=== PATIENT | male | born 1935 | race Caucasian/White ===

== ENCOUNTER 2018-05-25 22:17 | Inpatient (IN) | payer MEDICARE ==
--- NOTE | 2018-05-25 23:58 | ED Physician Chart ---
ED Chief Complaint/HPI - Patient Information Date Seen:: 05/25/18 Time Seen:: 22:15 Chief Complaint:: Agitation History of Present Illness:: onset x 3 days of agitation and aggressive behavior; no report of trauma, SIs, H /As, S/T, neck pain, C/P, SOB, Abd. Pain, A/N/V/D/C, fever, chills, or urinary s /s Allergies:: Allergies Allergy/AdvReac Type Severity Reaction Status Date / Time No Known Allergies Allergy Verified 05/25/18 22:19 Vitals:: Vital Signs - 8 hr 05/25/18 22:17 Temp 97.8 F HR 72 RR 20 BP 112/62 O2 Sat % 97 Historian:: Patient Review:: Nurse's Note Reviewed ED Review of Systems - Review of Systems General/Constitutional: No fever, No chills, No weight loss, No weakness, No diaphoresis, No edema, No loss of appetite Skin: No skin lesions, No rash, No bruising Head: No headache, No light-headedness Eyes: No loss of vision, No pain, No diplopia ENT: No earache, No nasal drainage, No sore throat, No tinnitus Neck: No neck pain, No swelling, No thyromegaly, No stiffness, No mass noted Cardio Vascular: No chest pain, No palpitations, No PND, No orthopnea, No edema Pulmonary: No SOB, No cough, No sputum, No wheezing GI: No nausea, No vomiting, No diarrhea, No pain, No melena, No hematochezia, No constipation, No hematemesis G/U: No dysuria, No frequency, No hematuria, No nacturia Musculoskeletal: No bone or joint pain, No back pain, No muscle pain Endocrine: No polyuria, No polydipsia Psychiatric: Prior psych history, Depression, Anxiety, No suicidal ideation, No homicidal ideation, No auditory hallucination Hematopoietic: No bruising, No lymphadenopathy Allergic/Immuno: No urticaria, No angioedema Neurological: No syncope, No focal symptoms, No weakness, No paresthesia, No headache, No seizure, No dizziness, Confusion, No vertigo ED Past Medical History - Past Medical History Obtainable: Yes Past Medical History: HTN, Dyslipidemia, ESRD, Dementia Family History: HTN Social History: Non Smoker, No Alcohol, No Drug Use, Single, Care Facility Surgical History: None Psychiatricy History: Depression, Bipolar, Dementia Medication: Reviewed Family Medical History - Family Member Mother History Unknown: Yes ED Physical Exam - Physical Examination General/Constitutional: Awake, Well-developed, well-nourished, Alert, No distress, GCS 15, Non-toxic appearing, Ambulatory Head: Atraumatic Eyes: Lids, conjuctiva normal, PERRL, EOMI Skin: Nl inspection, No rash, No skin lesions, No ecchymosis, Well hydrated, No lymphadenopathy ENMT: External ears, nose nl, TM canals nl, Nasal exam nl, Lips, teeth, gums nl , Oropharynx nl, Tonsils nl Neck: Nontender, Full ROM w/o pain, No JVD, No nuchal rigidity, No bruit, No mass, No stridor Respiratory: Nl effort/Exclusion, Clear to Auscultation, No Wheeze/Rhonchi/Rales Cardio Vascular: RRR, No murmur, gallop, rubs, NL S1 S2 GI: No tenderness/rebounding/guarding, No organomegaly, No hernia, Normal BS's, Nondistended, No mass/bruits, No McBurney tenderness Other GI comments:: no pulsatile masses : No CVA tenderness Extremities: No tenderness or effusion, Full ROM, normal strength in all extremities, No edema, Normal digits & nails Neuro/Psych: Alert/oriented, DTR's symmetric, Normal sensory exam, Normal motor strength, Judgement/insight normal, Mood normal, Normal gait, No focal deficits Other Neuro/Psych comments:: + Psychomotor Agitation; no SIs; Mood/Affect: Stable Misc: Normal back, No paraspinal tenderness ED Labs/Radiology/EKG Results - Lab Results Comments:: deferred by pt - EKG Interpretations Comments:: deferred by pt ED Septic Shock - . Is Septic Shock (SBP<90, OR Lactate>4 mmol\L) present?: No - <6hrs of presentation: Vital Signs: Vital Signs - 8 hr 05/25/18 22:17 Temp 97.8 F HR 72 RR 20 BP 112/62 O2 Sat % 97 ED Reassessment (Disposition) - Reassessment Reassessment Condition:: Improved - Diagnosis Diagnosis:: Dx: Agitation; Psychosis; Dementia; Alzheimer's Disease; Medical Clearance; Bipolar Disorder - Aftercare/Follow up Instructions Aftercare/Follow-Up Instructions:: Counseled pt regarding lab results/diagnosis & need follow up, Counseled pt & family regarding lab results/diagnosis & need follow up - Patient Disposition Discharge/Transfer:: Acute Care w/in this hosp Admitted to:: [facility] Condition at Disposition:: Stable, Improved
[2018-05-26 00:38] VITALS: BP 112/61
[2018-05-26] MEDS ORDERED: Maalox 30 mL Cup PO PRN (00:39)
[2018-05-26] MEDS ORDERED: Magnesium Hydroxide (MOM) 30 mL UDC PO PRN (00:39)
[2018-05-26] MEDS ORDERED: Acetaminophen 500 MG TAB PO PRN (00:43)
[2018-05-26] MEDS ORDERED: Haloperidol Lactate 5 mg/mL 1mL Vial IM PRN (00:43)
[2018-05-26] MEDS: Multivitamin Tab PO SCH (09:07)
--- NOTE | 2018-05-26 23:36 | History and Physical ---
History of Present Illness - HPI Chief Complaint: agitation HPI: 82 year old male admitted from SNF due to agitation. Vital Signs: Last Vital Signs Temp 97.4 F 05/26/18 20:00 Pulse 70 05/26/18 20:00 Resp 19 05/26/18 20:00 BP 111/68 05/26/18 20:00 Pulse Ox 97 05/26/18 20:00 Past Medical History Other History: HTN, Dyslipidemia, ESRD, Dementia Family Medical History - Family Member Mother History Unknown: Yes Social History Smoke: No Alcohol: None Drugs: None Lives: Longterm - Medications Home Medications: Home Medication Medication Instructions Recorded Type Acetaminophen [Tylenol Extra 500 mg PO Q6HR PRN 05/25/18 History Strength] Bimatoprost [Lumigan] 1 drop RIGHT EYE HS 05/25/18 History Haloperidol Lactate [Haldol] 2 mg IM Q6HR PRN 05/25/18 History Lorazepam [Ativan] 0.5 mg PO Q4HR 05/25/18 History Temazepam [Restoril*] 15 mg PO HS PRN 05/25/18 History risperiDONE [RisperDAL] 1 mg PO BID 05/25/18 History - Allergies Allergies/Adverse Reactions: Allergies Allergy/AdvReac Type Severity Reaction Status Date / Time No Known Allergies Allergy Verified 05/25/18 22:19 Review of Systems - Review of Systems Constitutional: Report: No Significant Eyes: Report: No Significant Respiratory: Report: No Significant Cardiovascular: Report: No Significant Neurological: Report: No Significant Physical Exam - Physical Exam HEENT: Report: Ears Nose Throat within normal limits Neck: Report: Within normal limits Cardiovascular Systems: Report: +s1/s2 noted, Regular, Rate and Rhythm Respiratory: Report: Breath Sounds are within normal limits Abdomen: Report: Non-tender to palpation Neuro/Psych: Report: No new focal deficits - Assessment Assessment: HTN Dyslipidemia ESRD Dementia - Plan Plan: as per psych
--- NOTE | 2018-05-27 03:22 | Psychosocial Evaluation ---
DATE OF SERVICE: 05/26/2018 IDENTIFYING DATA: The patient is an 82-year-old male, resident of [facility]. JUSTIFICATION OF HOSPITALIZATION: The patient is admitted on a voluntary basis in view of his acute agitation. CHIEF COMPLAINT: "I need to take care of my parents, I need to go home." HISTORY OF PRESENT ILLNESS: This is the first psychiatric hospitalization to [facility] for this patient. The patient is reported to have been getting easily agitated and the patient has been made multiple attempts to walk out of the locked and alarmed facility. The patient is getting easily disoriented, agitated, and the patient has been admitted to the Emergency Room and has been requested to be seen by Dr. Smith for his physical examination. The patient has been diagnosed to have problem with the memory for a long period of time and getting easily confused a lot lately. PAST PSYCHIATRIC HISTORY: Details are not known. MEDICAL HISTORY: Physical examination is requested to be done by Dr. Smith. SUBSTANCE ABUSE HISTORY: None. PHYSICAL OR SEXUAL ABUSE HISTORY: None. LEGAL PROBLEMS: None at this time. STRENGTH AND ASSETS: The patient is motivated. MENTAL STATUS EXAMINATION: The patient is an 82-year-old thin built, superficially cooperative. Coping skills are noted to be very poor. Insight and judgment are also noted to be very poor. The patient is easily getting agitated. The patient is very confused. The patient's short and long-term are noted to be very poor. The patient is insisting that he needs to take care of his parents and he needs to leave the facility. The patient has no insight. DIAGNOSTIC IMPRESSION: 1. Psychotic disorder, not otherwise specified. 1B. Dementia and behavioral changes secondary to it. IMMEDIATE TREATMENT PLAN: The patient is going to be observed on inpatient unit, provided with supportive psychotherapy. The patient is going to be closely monitored. The patient is going to be continued on Risperdal and zolpidem. ESTIMATED LENGTH OF STAY: 3-5 days. DISCHARGE CRITERIA: When he is no longer a threat to self or others and be able to cope up with the stress. JOB# [id number]
[2018-05-27] MEDS: Multivitamin Tab PO SCH (09:21)
--- NOTE | 2018-05-27 21:08 | General Progress Note ---
Subjective - Review of Systems Service Date: 05/27/18 Objective - Physical Exam Vitals and I&O: Vital Signs Temp 98.0 F 05/27/18 20:04 Pulse 84 05/27/18 20:04 Resp 20 05/27/18 20:04 BP 100/55 05/27/18 20:04 Pulse Ox 90 05/27/18 20:04 Intake & Output 05/27/18 05/27/18 05/28/18 06:59 18:59 06:59 Intake Total 720 1540 Balance 720 1540 Intake: Oral 720 1540 Other: # Voids 2 2 # Bowel Movements 0 0 Active Medications: Current Medications Acetaminophen (Tylenol) 650 mg PO Q4HR PRN PRN Reason: Mild Pain / Temp above 100 Stop: 07/25/18 00:38 Acetaminophen (Tylenol Extra Strength) 500 mg PO Q6HR PRN PRN Reason: Pain or Fever >101 Stop: 07/25/18 00:42 Al Hydrox/Mg Hydrox/Simethicone (Maalox) 30 ml PO Q4HR PRN PRN Reason: GI DISTRESS Stop: 07/25/18 00:38 Haloperidol Lactate (Haldol) 2 mg IM Q6H PRN; Protocol PRN Reason: Agitation Stop: 07/25/18 00:42 Latanoprost (Xalatan 0.005% Oph Soln) 1 drop RIGHT EYE HS STANLEY Stop: 07/25/18 20:59 Last Admin: 05/27/18 20:46 Dose: 1 drop Lorazepam (Ativan) 0.5 mg PO Q4H PRN; Protocol PRN Reason: Agitation Stop: 07/25/18 00:42 Last Admin: 05/26/18 02:31 Dose: 0.5 mg Magnesium Hydroxide (Milk Of Magnesia) 30 ml PO HS PRN PRN Reason: Constipation Multivitamins/Vitamin C (Theragran) 1 tab PO DAILY STANLEY Stop: 07/25/18 08:59 Last Admin: 05/27/18 09:21 Dose: 1 tab Risperidone (Risperdal) 1 mg PO BID STANLEY; Protocol Stop: 07/25/18 08:59 Last Admin: 05/27/18 16:32 Dose: 1 mg Zolpidem Tartrate (Ambien) 5 mg PO HS PRN PRN Reason: Insomnia Stop: 07/25/18 00:38 Last Admin: 05/27/18 20:50 Dose: 5 mg Assessment/Plan - Assessment Assessment: HTN Dyslipidemia ESRD Dementia - Plan Plan: as per psych
--- NOTE | 2018-05-27 22:48 | Consultation ---
DATE OF CONSULTATION: 05/27/2018 REFERRING PHYSICIAN: Susannah Harris M.D. TYPE OF CONSULTATION: Psychology. HISTORY OF PRESENT ILLNESS: The patient is an 82-year-old male. The patient is a resident of [facility]. The following is by review of the medical record and by patient's self-report. The patient is being admitted due to acute agitation. The patient presents as confused. According to the staff at the patient's facility, he had become easily agitated and also had made multiple attempts to leave the facility AWOL. The patient presents as disoriented and easily agitated. The patient denied any suicidal ideation or plan or intention. The patient was unable to verbally contract for safety. PAST MEDICAL HISTORY: Please see history and physical by Dr. Smith. PAST PSYCHIATRIC HISTORY: Record is not available. SUBSTANCE ABUSE HISTORY: The patient denied any history. PSYCHOSOCIAL HISTORY: The patient did not answer questions about occupational or educational history or amish affiliation. The patient denied any history of physical or sexual abuse. The patient denies any current legal problems. MENTAL STATUS EXAMINATION: The patient appears to be his stated age. The patient's attitude is superficially cooperative. Eye contact is fair to poor. Speech is delayed. Mood is irritable. Affect is constricted. Thought process shows to be quite confused and markedly tangential. The patient denied any auditory or visual hallucinations. The patient denied any suicidal ideation, plan or intention. The patient did report that he had to return back to the facility because his family was going to pick him up to take care of his parents. There is a possible delusion here, but nonspecific. The patient has poor insight into his illness. The patient's behavior has been redirectable thus far. Impulse control is limited. Concentration is poor. There are obvious apparent cognitive deficits including impaired, immediate, short-term and long-term memory. The patient was not able to give his correct date of or his correct age. The patient was unable to give milestones about his personal history. Sensorium is alert and oriented to self only. The patient did not participate in interpretation of proverbs. Insight is impaired. Judgment is impaired. DIAGNOSTIC IMPRESSION: AXIS I: 1. Psychotic disorder, not otherwise specified. 2. Dementia with behavioral disturbance. AXIS II: Deferred. AXIS III: Please see history and physical by Dr. Luis. TREATMENT PLAN: The patient has been seen by Dr. Harris for psychiatric evaluation and for the management of the patient's psychotropic medications. The patient will be provided with supportive psychotherapy to include reality orientation and reality integration. We will provide coping strategies for phase of life issues. We will provide behavioral redirection and encourage the patient to be able to demonstrate emotional and self-regulation prior to discharge. We will continue to provide supportive psychotherapy along with coping strategies and motivational enhancement for the patient to become compliant and stay compliant with all aspects of his care and treatment plan. Thank you, Dr. Harris for this consult and the opportunity to participate with you in this patient's care. JOB# [id number] IRMA
--- NOTE | 2018-05-28 05:04 | Progress Notes ---
DATE: 05/27/2018 PSYCHIATRIC PROGRESS NOTE SUBJECTIVE: Staff was spoken to. The patient is interviewed. Mood is noted to be irritable. Affect is constricted. Insight and judgment at this time are noted to be still impaired. Impulse control seems to be limited. Coping skills are noted to be limited. The patient has been having difficult time to cope with the stress. The patient is demanding that he should be going home to take care of his parents. The patient ____ in the hospital. ASSESSMENT: The patient is still impulsive and demented. PLAN: To continue the patient with the supportive therapy. I encouraged the patient to verbalize the concerns rather than to act out. JOB# [id number]
[2018-05-28] MEDS: Multivitamin Tab PO SCH (08:12)
--- NOTE | 2018-05-28 16:36 | Progress Notes ---
DATE: 05/28/2018 SUBJECTIVE: Staff was spoken to. The patient is interviewed. Mood is noted to be irritable. Affect is constricted. The patient has been sleeping all day and ____. The patient's coping skills are noted to be very poor. The patient is getting easily agitated. The patient is currently on risperidone 1 mg b.i.d. and plan to hold the medication if the patient is going to be too sleepy this morning. The patient has paranoid delusions and dementia and has been mentioning that he needs to be at home and to take care of his parents. The patient has no clue that he is in the hospital and he is severely demented. ASSESSMENT: The patient is still grossly psychotic and demented. PLAN: To continue the patient with the supportive therapy and followup. JOB# [id number]
--- NOTE | 2018-05-29 02:53 | Progress Notes ---
DATE: 05/28/2018 SUBJECTIVE: The patient was seen ____bed. The patient was asleep, but easily arousable. The patient appears to be irritated and guarded. The patient is a poor historian due to medical condition, otherwise the patient is in no acute distress. OBJECTIVE: VITAL SIGNS: Temperature 98, heart rate of 84, blood pressure 100/55, respiration of 20, 98% on room air. HEENT: Head is atraumatic and normocephalic. Eyes: Bilateral conjunctivae are clear. Bilateral pupils equally round and reactive. NECK: Supple. No JVD. CARDIOVASCULAR: S1 and S2, without murmur. PULMONARY: Clear to auscultation. GASTROINTESTINAL: Soft and nontender without guarding. Positive bowel sounds. MUSCULOSKELETAL: No clubbing. No cyanosis noted. ASSESSMENT: 1. Dementia. 2. Osteoarthritis. 3. Glaucoma. 4. Insomnia. PLAN: We will keep the patient in senior mental health unit. We will follow with the psychiatrist to monitor the patient's condition and behavior. Treatment plans were discussed with the patient's nurse. Treatment plans were discussed with ____ JOB# [id number]
[2018-05-29] MEDS: Multivitamin Tab PO SCH (08:41)
--- NOTE | 2018-05-29 11:12 | General Progress Note ---
Subjective - Review of Systems Events since last encounter: awake irritable , no fever Objective - Physical Exam Vitals and I&O: Vital Signs Temp 97.8 F 05/28/18 17:49 Pulse 92 05/28/18 17:49 Resp 19 05/28/18 17:49 BP 89/58 05/28/18 17:49 Pulse Ox 95 05/28/18 17:49 Intake & Output 05/28/18 05/29/18 05/29/18 18:59 06:59 18:59 Intake Total 1400 Balance 1400 Intake: Oral 1400 Other: # Voids 4 # Bowel Movements 2 Active Medications: Current Medications Acetaminophen (Tylenol) 650 mg PO Q4HR PRN PRN Reason: Mild Pain / Temp above 100 Stop: 07/25/18 00:38 Acetaminophen (Tylenol Extra Strength) 500 mg PO Q6HR PRN PRN Reason: Pain or Fever >101 Stop: 07/25/18 00:42 Al Hydrox/Mg Hydrox/Simethicone (Maalox) 30 ml PO Q4HR PRN PRN Reason: GI DISTRESS Stop: 07/25/18 00:38 Haloperidol Lactate (Haldol) 2 mg IM Q6H PRN; Protocol PRN Reason: Agitation Stop: 07/25/18 00:42 Latanoprost (Xalatan 0.005% Oph Soln) 1 drop RIGHT EYE HS STANLEY Stop: 07/25/18 20:59 Last Admin: 05/28/18 20:44 Dose: 1 drop Lorazepam (Ativan) 0.5 mg PO Q4H PRN; Protocol PRN Reason: Agitation Stop: 07/25/18 00:42 Last Admin: 05/28/18 20:44 Dose: 0.5 mg Magnesium Hydroxide (Milk Of Magnesia) 30 ml PO HS PRN PRN Reason: Constipation Multivitamins/Vitamin C (Theragran) 1 tab PO DAILY STANLEY Stop: 07/25/18 08:59 Last Admin: 05/29/18 08:41 Dose: 1 tab Risperidone (Risperdal) 1 mg PO BID STANLEY; Protocol Stop: 07/25/18 08:59 Last Admin: 05/29/18 08:40 Dose: 1 mg Zolpidem Tartrate (Ambien) 5 mg PO HS PRN PRN Reason: Insomnia Stop: 07/25/18 00:38 Last Admin: 05/28/18 20:44 Dose: 5 mg General: No acute distress HEENT: Atraumatic Neck: Supple, no Thyromegaly Cardiovascular: Regular rate, Normal S1, Normal S2 Lungs: Clear to auscultation Assessment/Plan - Problem List Patient Problems: All Active Problems Dementia (Acute) F03.90 Glaucoma (Acute) H40.9 Insomnia (Acute) G47.00 Osteoarthritis (Acute) M19.90 - Assessment Assessment: HTN Dyslipidemia ESRD Dementia - Plan Plan: as per psych cpm
--- NOTE | 2018-05-29 19:42 | Progress Notes ---
DATE: 05/29/2018 SUBJECTIVE: Staff was spoken to. The patient is interviewed. Mood is noted to be anxious. Affect is constricted. The patient has been still focused on going home and taking care of his family. The patient has no insight into his illness. The patient is currently on Risperdal 1 mg b.i.d. and the patient has been able to tolerate the medication. ASSESSMENT: Aggressive behavior seems to be coming under control. PLAN: To continue the patient with the supportive therapy. I encouraged the patient to verbalize the concerns, rather than to act out. JOB# [id number]
[2018-05-30] MEDS: Multivitamin Tab PO SCH (08:51)
--- NOTE | 2018-05-30 16:16 | General Progress Note ---
Subjective - Review of Systems Events since last encounter: awake irritable no fever Objective - Physical Exam Vitals and I&O: Vital Signs Temp 99 F 05/30/18 14:37 Pulse 82 05/30/18 14:37 Resp 20 05/30/18 14:37 BP 107/62 05/30/18 14:37 Pulse Ox 96 05/30/18 14:37 Intake & Output 05/29/18 05/30/18 05/30/18 18:59 06:59 18:59 Intake Total 360 Balance 360 Intake: Oral 360 Other: # Voids 2 # Bowel Movements 0 Stool Characteristics Soft Formed Active Medications: Current Medications Acetaminophen (Tylenol) 650 mg PO Q4HR PRN PRN Reason: Mild Pain / Temp above 100 Stop: 07/25/18 00:38 Acetaminophen (Tylenol Extra Strength) 500 mg PO Q6HR PRN PRN Reason: Pain or Fever >101 Stop: 07/25/18 00:42 Al Hydrox/Mg Hydrox/Simethicone (Maalox) 30 ml PO Q4HR PRN PRN Reason: GI DISTRESS Stop: 07/25/18 00:38 Haloperidol Lactate (Haldol) 2 mg IM Q6H PRN; Protocol PRN Reason: Agitation Stop: 07/25/18 00:42 Latanoprost (Xalatan 0.005% Ophth Soln) 1 drop RIGHT EYE HS STANLEY Stop: 07/25/18 20:59 Last Admin: 05/29/18 21:09 Dose: 1 drop Lorazepam (Ativan) 0.5 mg PO Q4H PRN; Protocol PRN Reason: Agitation Stop: 07/25/18 00:42 Last Admin: 05/29/18 21:09 Dose: 0.5 mg Magnesium Hydroxide (Milk Of Magnesia) 30 ml PO HS PRN PRN Reason: Constipation Multivitamins/Vitamin C (Theragran) 1 tab PO DAILY STANLEY Stop: 07/25/18 08:59 Last Admin: 05/30/18 08:51 Dose: Not Given Risperidone (Risperdal) 1 mg PO BID STANLEY; Protocol Stop: 07/25/18 08:59 Last Admin: 05/30/18 08:51 Dose: Not Given Zolpidem Tartrate (Ambien) 5 mg PO HS PRN PRN Reason: Insomnia Stop: 07/25/18 00:38 Last Admin: 05/29/18 21:09 Dose: 5 mg General: No acute distress HEENT: Atraumatic Neck: Supple, no Thyromegaly Cardiovascular: Regular rate, Normal S1, Normal S2 Lungs: Clear to auscultation Assessment/Plan - Problem List Patient Problems: All Active Problems Dementia (Acute) F03.90 Glaucoma (Acute) H40.9 Insomnia (Acute) G47.00 Osteoarthritis (Acute) M19.90 - Assessment Assessment: HTN Dyslipidemia ESRD Dementia - Plan Plan: as per psych cpm
--- NOTE | 2018-05-31 02:14 | Progress Notes ---
DATE: 05/30/2018 PSYCHIATRIC PROGRESS NOTE Staff was spoken to. The patient is interviewed. Mood is noted to be irritable. Affect is constricted. The patient has been having difficult time to cope with the stress, getting easily agitated towards the end of the day. The patient is currently on Risperdal 1 mg b.i.d. and has been able to tolerate the medications. Aggressive behavior is the one that is being closely monitored at this time. The patient is still demented and is insisting on leaving this place. ASSESSMENT: The patient is still confused and demented and paranoid. PLAN: To continue the patient with Risperdal and followup. JOB# [id number]
[2018-05-31] MEDS: Multivitamin Tab PO SCH (08:29)
--- NOTE | 2018-05-31 20:27 | General Progress Note ---
Subjective - Review of Systems Service Date: 05/31/18 Objective - Physical Exam Vitals and I&O: Vital Signs Temp 97.6 F 05/31/18 20:16 Pulse 88 05/31/18 20:16 Resp 18 05/31/18 20:16 BP 106/59 05/31/18 20:16 Pulse Ox 96 05/31/18 20:16 Intake & Output 05/31/18 05/31/18 06/01/18 06:59 18:59 06:59 Intake Total 240 240 Balance 240 240 Intake: Oral 240 240 Other: # Voids 2 1 Stool Characteristics Soft Soft Active Medications: Current Medications Acetaminophen (Tylenol) 650 mg PO Q4HR PRN PRN Reason: Mild Pain / Temp above 100 Stop: 07/25/18 00:38 Acetaminophen (Tylenol Extra Strength) 500 mg PO Q6HR PRN PRN Reason: Pain or Fever >101 Stop: 07/25/18 00:42 Al Hydrox/Mg Hydrox/Simethicone (Maalox) 30 ml PO Q4HR PRN PRN Reason: GI DISTRESS Stop: 07/25/18 00:38 Haloperidol Lactate (Haldol) 2 mg IM Q6H PRN; Protocol PRN Reason: Agitation Stop: 07/25/18 00:42 Latanoprost (Xalatan 0.005% Ophth Soln) 1 drop RIGHT EYE HS STANLEY Stop: 07/25/18 20:59 Last Admin: 05/30/18 21:05 Dose: 1 drop Lorazepam (Ativan) 0.5 mg PO Q4H PRN; Protocol PRN Reason: Agitation Stop: 07/25/18 00:42 Last Admin: 05/31/18 08:28 Dose: 0.5 mg Magnesium Hydroxide (Milk Of Magnesia) 30 ml PO HS PRN PRN Reason: Constipation Multivitamins/Vitamin C (Theragran) 1 tab PO DAILY STANLEY Stop: 07/25/18 08:59 Last Admin: 05/31/18 08:29 Dose: 1 tab Risperidone (Risperdal) 1 mg PO BID STANLEY; Protocol Stop: 07/25/18 08:59 Last Admin: 05/31/18 16:39 Dose: 1 mg Zolpidem Tartrate (Ambien) 5 mg PO HS PRN PRN Reason: Insomnia Stop: 07/25/18 00:38 Last Admin: 05/31/18 00:32 Dose: 5 mg General: No acute distress HEENT: Atraumatic Neck: Supple, no Thyromegaly Cardiovascular: Regular rate, Normal S1, Normal S2 Lungs: Clear to auscultation Assessment/Plan - Problem List Patient Problems: All Active Problems Dementia (Acute) F03.90 Glaucoma (Acute) H40.9 Insomnia (Acute) G47.00 Osteoarthritis (Acute) M19.90 - Assessment Assessment: HTN Dyslipidemia ESRD Dementia - Plan Plan: as per psych cpm
--- NOTE | 2018-06-01 09:23 | General Progress Note ---
Subjective - Review of Systems Events since last encounter: in no distress Objective - Physical Exam Vitals and I&O: Vital Signs Temp 97.6 F 06/01/18 05:36 Pulse 83 06/01/18 05:36 Resp 18 06/01/18 05:36 BP 111/58 06/01/18 05:36 Pulse Ox 98 06/01/18 05:36 Intake & Output 05/31/18 06/01/18 06/01/18 18:59 06:59 18:59 Intake Total 300 Balance 300 Intake: Oral 300 Other: # Voids 1 # Bowel Movements 0 Stool Characteristics Soft Active Medications: Current Medications Acetaminophen (Tylenol) 650 mg PO Q4HR PRN PRN Reason: Mild Pain / Temp above 100 Stop: 07/25/18 00:38 Acetaminophen (Tylenol Extra Strength) 500 mg PO Q6HR PRN PRN Reason: Pain or Fever >101 Stop: 07/25/18 00:42 Al Hydrox/Mg Hydrox/Simethicone (Maalox) 30 ml PO Q4HR PRN PRN Reason: GI DISTRESS Stop: 07/25/18 00:38 Haloperidol Lactate (Haldol) 2 mg IM Q6H PRN; Protocol PRN Reason: Agitation Stop: 07/25/18 00:42 Latanoprost (Xalatan 0.005% Oph Soln) 1 drop RIGHT EYE HS STANLEY Stop: 07/25/18 20:59 Last Admin: 05/31/18 21:10 Dose: 1 drop Lorazepam (Ativan) 0.5 mg PO Q4H PRN; Protocol PRN Reason: Agitation Stop: 07/25/18 00:42 Last Admin: 05/31/18 08:28 Dose: 0.5 mg Magnesium Hydroxide (Milk Of Magnesia) 30 ml PO HS PRN PRN Reason: Constipation Multivitamins/Vitamin C (Theragran) 1 tab PO DAILY STANLEY Stop: 07/25/18 08:59 Last Admin: 05/31/18 08:29 Dose: 1 tab Risperidone (Risperdal) 1 mg PO BID STANLEY; Protocol Stop: 07/25/18 08:59 Last Admin: 05/31/18 16:39 Dose: 1 mg Zolpidem Tartrate (Ambien) 5 mg PO HS PRN PRN Reason: Insomnia Stop: 07/25/18 00:38 Last Admin: 05/31/18 21:10 Dose: 5 mg General: No acute distress HEENT: Atraumatic Neck: Supple, no Thyromegaly Cardiovascular: Regular rate, Normal S1, Normal S2 Lungs: Clear to auscultation Assessment/Plan - Problem List Patient Problems: All Active Problems Dementia (Acute) F03.90 Glaucoma (Acute) H40.9 Insomnia (Acute) G47.00 Osteoarthritis (Acute) M19.90 - Assessment Assessment: HTN Dyslipidemia ESRD Dementia - Plan Plan: as per psych cpm
[2018-06-01] MEDS: Multivitamin Tab PO SCH (10:03)
--- NOTE | 2018-06-01 23:32 | Progress Notes ---
DATE: 06/01/2018 SUBJECTIVE: Staff was spoken to. The patient is interviewed. Mood is noted to be irritable. Affect is constricted. The patient is getting easily agitated. Coping skills at this time are noted to be very poor. The patient has paranoia and still fixated on taking care of his parents ____. The patient has been complaining that he has been having problem with the sleep, possibly it is decided to slowly discontinue the Risperdal and switch the patient to the Seroquel and the patient is going to be started at 12.5 mg of the Seroquel tonight to be followed up with the supportive therapy. ASSESSMENT: The patient is still paranoid and is not able to contract for safety. PLAN: The patient is going to be closely monitored on the current medication and followed up. JOB# [id number]
[2018-06-02] MEDS: Multivitamin Tab PO SCH (10:39)
--- NOTE | 2018-06-02 19:26 | Progress Notes ---
DATE: 06/02/2018 SUBJECTIVE: Staff was spoken to. The patient is interviewed. Mood is noted to be less irritable. Affect is appropriate. The patient's insight and judgment are noted to be improving. Impulse control seems to be fair. No side effects to medications are noted. The patient is currently on 12.5 mg of the Seroquel and has been able to tolerate the medication. No major behavioral problems are noted. The patient was on risperidone and that was discontinued. No major behavioral problems are noted at this time and the patient has been switched over to 25 mg of the Seroquel. ASSESSMENT: The patient is able to find placement. PLAN: The patient is going to be discharged for followup on an outpatient basis. partner alliance manager has been informed of the possible discharge. JOB# [id number]
== END 2018-06-02 14:30 | DRG 885 ==
LOC: ER 22:17 → GERO2 23:35
PROVIDERS: ADMIT Psychiatry & Neurology Psychiatry; ATTEND Psychiatry & Neurology Psychiatry
DX: F29 Unspecified psychosis not due to a substance or known physiological condition (principal); F02.81 Dementia in other diseases classified elsewhere, unspecified severity, with behavioral disturbance; N18.6 End stage renal disease; I12.0 Hypertensive chronic kidney disease with stage 5 chronic kidney disease or end stage renal disease; G30.9 Alzheimer's disease, unspecified; E78.5 Hyperlipidemia, unspecified; F31.9 Bipolar disorder, unspecified; M19.90 Unspecified osteoarthritis, unspecified site; H40.9 Unspecified glaucoma; G47.00 Insomnia, unspecified; Z82.49 Family history of ischemic heart disease and other diseases of the circulatory system
CPT/HCPCS: Z7610